=== PATIENT | male | born 1955 | race Caucasian/White ===

== ENCOUNTER 2017-01-09 21:51 | Observation (INO) | payer OTHER ==
[~2017-01-09] VITALS: Ht 180.3 cm; Wt 76.8 kg
[~2017-01-09 21:51] MED LIST: AMLO-147 PO; CARV3.1260 PO; CLON1PAT32 TD; FINA5TAB PO; FLEC50TA PO; HYDR-3672 PO; ONDA4TAB8 PO; OXYC-281 PO; ROSU20TA PO; TRAM-40 PO; VALS160T20 PO; WARF3TAB PO
[2017-01-09] MEDS ORDERED: ONDANSETRON 4 MG INJ IV STA (22:15)
[2017-01-09] MEDS ORDERED: morphine 4 MG/ML VIAL IV STA (22:15)
[2017-01-09 22:57] LABS: ADD SCAN DIFF NO
[2017-01-09 23:00] LABS: BASOPHIL # 0.1 10^3/ul (0.0-0.1); BASOPHILS % 0.8 % (0.0-2.0); EOSINOPHILS # 0.1 10^3/ul (0.0-0.5); EOSINOPHILS % 0.8 % (0.0-7.0); HEMATOCRIT 32.9 % (42.0-52.0); HEMOGLOBIN 10.9 g/dl (14.0-18.0); LYMPHOCYTES # 0.7 10^3/ul (0.8-2.9); MEAN CORPUSCULAR HEMOGLOBIN 32.2 pg (29.0-33.0); MEAN CORPUSCULAR HGB CONC 33.1 g/dl (32.0-37.0); MEAN CORPUSCULAR VOLUME 97.3 fl (82.0-101.0); MEAN PLATELET VOLUME 9.6 fl (7.4-10.4); MONOCYTE # 1.2 10^3/ul (0.3-0.9); MONOCYTES % 10.9 % (0.0-11.0); NEUTROPHIL # 8.5 10^3/ul (1.6-7.5); NEUTROPHILS % 80.1 % (39.0-77.0); PLATELET COUNT 169 10^3/UL (140-415); RED BLOOD COUNT 3.38 10^6/ul (4.70-6.10); RED CELL DISTRIBUTION WIDTH 13.2 % (11.5-14.5); WHITE BLOOD COUNT 10.6 10^3/ul (4.8-10.8)
[2017-01-09 23:20] LABS: ALBUMIN 4.5 g/dl (3.3-4.9); ALBUMIN/GLOBULIN RATIO 1.4; CALCIUM 9.4 mg/dl (8.4-10.2); CREATININE 13.46 mg/dl (0.61-1.24); POTASSIUM 4.9 mmol/L (3.5-5.1); TOTAL PROTEIN 7.7 g/dl (6.1-8.1)
--- NOTE | 2017-01-09 23:42 | RADRPT ---
PROCEDURE: CT Abdomen and pelvis without contrast. CLINICAL INDICATION: Abdominal pain. TECHNIQUE: CT scan of the abdomen and pelvis was performed on a multi-detector high-resolution CT scanner. Contiguous axial images were obtained from the lung bases to the ischial tuberosities wit hout intravenous contrast. Coronal and sagittal reformatted images were also obtained. Images were reviewed on the PACS workstation. One or more of the following dose reduction techniques were used: - Automated exposure control. - Adjustment of the mA and/or kV according to patient size. - Use of iterative reconstruction technique. Exam CTD/vol = 10.30 mGy. Total exam DLP = 586.37 mGy-cm. COMPARISON: 01/09/2015. FINDINGS: Evaluation of the lung bases demonstrates a 6 x 4 mm subpleural ground-glass density within the righ t lower lobe. Abdomen: The liver is normal in size. There is no focal mass or dilatation of the biliary tree. T he gallbladder is not distended. The spleen, pancreas and right adrenal gland are within normal garcia its. There is a nodule within the left adrenal gland measuring 1.9 x 1.4 cm with Hounsfield charact eristics compatible with adenoma. Bilateral kidneys are normal in size with no contour deforming ma ss identified. There is no radiopaque renal or ureteral calculus identified. There is mild right-s ided hydronephrosis. There is no retroperitoneal adenopathy. The abdominal aorta is of normal shayla radha with scattered atherosclerotic calcifications. There is no abnormal bowel wall thickening or distension. There is no bowel obstruction or free air . A normal appendix is identified. There is no diverticulosis or diverticulitis. There is no asci reny. Pelvis: The bladder is unremarkable. The prostate is mildly enlarged. There is no significant pel sabrina adenopathy or free fluid. Evaluation of the osseous structures demonstrates no suspicious lytic or blastic lesion. IMPRESSION: Mild right-sided hydronephrosis. There is no radiopaque renal or ureteral calculus identified. Left adrenal adenoma, stable. Vascular calcifications reflective of atherosclerosis. Mildly enlarged prostate. Right lower lobe 6 x 4 mm subpleural ground-glass density, stable compared with 01/09/2015. .Carl Jim, MD, Date Time Electronically viewed and signed by .Carl Jim MD, on 01/09/2017 23:41 .T/
[2017-01-10] VITALS (17 sets, daily range): BP systolic 119–171; BP diastolic 57–92; PULSE 73–95; RESP 18–20; Ht 180.3 cm; Wt 76.8 kg
[2017-01-10] MEDS ORDERED: HYDROmorphONE 1 MG/ML SYG IV STA (00:17)
[2017-01-10] MEDS ORDERED: FLEC50TA PO (00:34)
[2017-01-10] MEDS ORDERED: WARF3TAB PO (00:34)
[2017-01-10] MEDS ORDERED: FAMO20TA18 PO (00:34)
[2017-01-10] MEDS ORDERED: HYDR-3672 PO (00:34)
[2017-01-10] MEDS ORDERED: SITA25TA3 PO (00:34)
[2017-01-10] MEDS ORDERED: SEVE800T10 PO (00:34)
[2017-01-10 00:55] LABS: ADD UMIC YES; URINE BILIRUBIN (Dip) NEGATIVE (NEGATIVE); URINE BLOOD (Dip) TRACE (NEGATIVE); URINE COLOR LT. YELLOW (YELLOW); URINE KETONES (Dip) NEGATIVE (NEGATIVE); URINE LEUKOCYTE ESTERASE (Dip) NEGATIVE (NEGATIVE); URINE NITRITE (Dip) NEGATIVE (NEGATIVE); URINE TOTAL PROTEIN (Dip) 1+ (NEGATIVE); URINE UROBILINOGEN (Dip) 0.2 E.U./dL (0.1-1.0)
[2017-01-10 01:14] LABS: URINE RBCS 0-2 /HPF (0)
[2017-01-10 01:15] LABS: BACTERIA,URINE FEW; SQUAMOUS EPITHELIAL CELL,UR RARE
--- NOTE | 2017-01-10 02:15 | ERA ---
ER Documentation Chief Complaint Date/Time DATE: 01/10/17 TIME: 02:14 Chief Complaint RLQ ABD PAIN SINCE NOON, DENIES N/V +DIALYSIS HPI This is a history of a consequence of right lower quadrant pain right upper quadrant pain since noon. Denies nausea vomiting. He is a dialysis patient is dialyzed Tuesdays and Saturdays. No fevers no chills. Pain is mild to moderate intensity with no exacerbating or alleviating factors. No other current complaints ROS All systems reviewed and are negative except as per history of present illness. Medications Home Meds Reported Medications Sevelamer Hcl* (Renagel*) 800 Mg Tablet, 800 MG PO WITH MEALS, TAB 01/10/17 Sitagliptin* (Januvia*) 25 Mg Tablet, 25 MG PO DAILY, #30 TAB 01/10/17 Famotidine* (Famotidine*) 20 Mg Tablet, 20 MG PO DAILY, #30 TAB 01/10/17 Warfarin Sodium* (Coumadin*) 3 Mg Tablet, 3 MG PO QMWF, TAB PATIENT TAKING 3mg DAILY EVERY MON-MON-MON THEN EVERY 2mg DAILY ON Mon [facility] 01/10/17 Hydralazine Hcl* (Hydralazine Hcl*) 50 Mg Tab, 100 MG PO TID, #180 TAB 01/10/17 Flecainide Acetate* (Flecainide Acetate*) 50 Mg Tablet, 100 MG PO BID, TAB 01/10/17 Finasteride* (Proscar*) 5 Mg Tablet, 5 MG PO DAILY, TAB 01/03/15 Rosuvastatin Calcium* (Crestor*) 20 Mg Tablet, 20 MG PO HS, TAB 01/03/15 Discontinued Reported Medications Valsartan* (Diovan*) 160 Mg Tablet, 160 MG PO BID, TAB 08/10/15 Warfarin Sodium* (Coumadin*) 3 Mg Tablet, 3 MG PO DAILY, TAB 08/10/15 Clonidine Hcl Transdermal Patch* (Catapres-TTS 2*) 0.2 Mg/24 Hr/Patch.wk Patch.tdwk, 1 PATCH TD Q7D, PATCH 08/10/15 Amlodipine Besylate* (Amlodipine Besylate*) 10 Mg Tablet, 10 MG PO DAILY, TAB 08/10/15 Carvedilol* (Carvedilol*) 3.125 Mg Tablet, 3.125 MG PO BID, TAB 08/10/15 Tramadol Hcl* (Ultram*) 50 Mg Tablet, 50 MG PO Q8, TAB 01/04/15 Flecainide Acetate* (Flecainide Acetate*) 50 Mg Tablet, 50 MG PO BID, TAB 08/13/14 Discontinued Scripts Oxycodone Hcl-Acetaminophen* (Percocet*) 5-325 Mg Tablet, 1 TAB PO TID Y for PAIN, #12 TAB Prov:RADHA FONTAINE MD 08/10/15 Ondansetron Hcl* (Zofran*) 4 Mg Tablet, 4 MG PO TID for NAUSEA AND/OR VOMITING, #30 TAB Prov:RADHA FONTAINE MD 08/10/15 Hydralazine Hcl* (Hydralazine Hcl*) 50 Mg Tab, 75 MG PO Q6H Y for ELEVATED BLOOD PRESSURE, #60 3 Refills take 1 and 1/2 tab (75 mg) q6h prn SBP>150 Prov:CHAI ARITA 01/17/15 Allergies Allergies: Coded Allergies: No Known Drug Allergies (Unverified Allergy, Unknown, 01/10/17) PMhx/Soc Medical and Surgical Hx: pt denies Surgical Hx History of Surgery: No Anesthesia Reaction: No Hx Neurological Disorder: No Hx Respiratory Disorders: No Hx Cardiac Disorders: Yes (HTN, Afib) Hx Psychiatric Problems: No Hx Miscellaneous Medical Probl: Yes (DM, CKD dialysis T,TH SAT) Hx Alcohol Use: No Hx Substance Use: No Hx Tobacco Use: No Smoking Status: Former smoker Physical Exam Vitals Vital Signs Date Time Temp Pulse Resp B/P Pulse Ox O2 Delivery O2 Flow Rate FiO2 01/09/17 22:26 74 20 159/60 99 Room Air 01/09/17 21:57 98.0 86 24 168/73 100 Physical Exam Const: [] Head: Atraumatic Eyes: Normal Conjunctiva ENT: Normal External Ears, Nose and Mouth. Neck: Full range of motion..~ No meningismus. Resp: Clear to auscultation bilaterally Cardio: Regular rate and rhythm, no murmurs Abd: Soft, non tender, non distended. Normal bowel sounds Skin: No petechiae or rashes Back: No midline or flank tenderness Ext: No cyanosis, or edema Neur: Awake and alert Psych: Normal Mood and Affect Result Diagram: 01/09/17224901/09/172249 Results 24 hrs Laboratory Tests Test 01/09/17 22:50 01/10/17 00:15 White Blood Count 10.610^3/ul Red Blood Count 3.3810^6/ul Hemoglobin 10.9g/dl Hematocrit 32.9% Mean Corpuscular Volume 97.3fl Mean Corpuscular Hemoglobin 32.2pg Mean Corpuscular Hemoglobin Concent 33.1g/dl Red Cell Distribution Width 13.2% Platelet Count 46350^3/UL Mean Platelet Volume 9.6fl Neutrophils % 80.1% Lymphocytes % 7.0% Monocytes % 10.9% Eosinophils % 0.8% Basophils % 0.8% Nucleated Red Blood Cells % 0.0/100WBC Neutrophils # 8.510^3/ul Lymphocytes # 0.710^3/ul Monocytes # 1.210^3/ul Eosinophils # 0.110^3/ul Basophils # 0.110^3/ul Nucleated Red Blood Cells # 0.010^3/ul Sodium Level 133mmol/L Potassium Level 4.9mmol/L Chloride Level 96mmol/L Carbon Dioxide Level 23mmol/L Anion Gap 19 Blood Urea Nitrogen 83mg/dl Creatinine 13.46mg/dl Glucose Level 135mg/dl Calcium Level 9.4mg/dl Total Bilirubin 0.0mg/dl Direct Bilirubin 0.00mg/dl Indirect Bilirubin 0.0mg/dl Aspartate Amino Transf (AST/SGOT) 27IU/L Alanine Aminotransferase (ALT/SGPT) 30IU/L Alkaline Phosphatase 75IU/L Total Protein 7.7g/dl Albumin 4.5g/dl Globulin 3.20g/dl Albumin/Globulin Ratio 1.40 Lipase 848U/L Urine Color LT. YELLOW Urine Clarity CLEAR Urine pH 6.0 Urine Specific [place] 1.015 Urine Ketones NEGATIVE Urine Nitrite NEGATIVE Urine Bilirubin NEGATIVE Urine Urobilinogen 0.2 E.U./dL Urine Leukocyte Esterase NEGATIVE Urine Microscopic RBC 0-2/HPF Urine Microscopic WBC 0-2/HPF Urine Squamous Epithelial Cells RARE Urine Bacteria FEW Urine Hemoglobin TRACE Urine Glucose 0.1%% Urine Total Protein 1+ Current Medications Medications (Trade) Dose Ordered Sig/Betty Route PRN Reason Start Time Stop Time Status Last Admin Dose Admin Morphine Sulfate (morphine) 4 mg ONCE STAT IV 01/09/17 22:15 01/09/17 22:16 DC 01/09/17 22:48 Ondansetron HCl (Zofran Inj) 4 mg ONCE STAT IV 01/09/17 22:15 01/09/17 22:16 DC 01/09/17 22:48 Hydromorphone HCl (Dilaudid) 1 mg ONCE STAT IV 01/10/17 00:17 01/10/17 00:18 DC 01/10/17 00:26 Procedures/MDM Medical decision-making: Patient comes in with her to be acute pancreatitis. Lipase is elevated over 3 times his normal baseline from previous lab work that we have drawn here. Patient will be admitted to the [facility] physician assistant distribution manager. Per [facility] physician, patient to be admitted to telemetry observation status given her cardiac history. Departure Diagnosis: Primary Impression: Acute pancreatitis Qualified Code: K85.90 - Acute pancreatitis, unspecified complication status, unspecified pancreatitis type Condition: Serious SHOAIB GODINEZ January 10, 2017 02:15
[2017-01-10] MEDS ORDERED: ACETAMINOPHEN 325 MG TAB PO PRN ×2 (03:30→10:00)
[2017-01-10] MEDS ORDERED: GLUCAGON 1 MG INJ IM PRN (10:00)
[2017-01-10] MEDS ORDERED: DOCUSATE SODIUM 100 MG CAP PO PRN (10:00)
[2017-01-10] MEDS ORDERED: MAGNESIUM HYDROXIDE 30ML CUP PO PRN (10:00)
[2017-01-10] MEDS ORDERED: ACETAMINOPHEN 650 MG SUPP PR PRN (10:00)
[2017-01-10] MEDS ORDERED: GLUCOSE GEL 15 GRAM TUBE BUCCAL PRN (10:00)
[2017-01-10] MEDS ORDERED: DEXTROSE 50% 50 ML SYRINGE IV PRN ×2 (10:00)
[2017-01-10] MEDS ORDERED: NACL 0.9% 3 ML SYG IV SCH (10:00)
[2017-01-10] MEDS: FINASTERIDE 5 MG TAB PO SCH (10:00)
[2017-01-10] MEDS ORDERED: ONDANSETRON 4 MG INJ IV PRN (10:00)
[2017-01-10] MEDS ORDERED: GLUCOSE GEL 15 GRAM TUBE PO PRN ×2 (10:00)
[2017-01-10] MEDS ORDERED: HYDROCODONE/APAP (5/325) TAB PO PRN (10:00)
[2017-01-10] MEDS ORDERED: BISACODYL 10 MG SUPP PR PRN (10:00)
--- NOTE | 2017-01-10 10:26 | CONS ---
Date/Time of Note Date/Time of Note DATE: 01/10/17 TIME: 10:17 Assessment/Plan Assessment/Plan Chief Complaint/Hosp Course - ESRD on Hemodialysis - Acute Pancreatitis - Anemia - Hypertension Plan: Will schedule for dialysis today ( regular HD days are TTS ) D/C MOM Pain control Follow up with labs THANK YOU VRamona MUCH Problems: Consultation Date/Type/Reason Admit Date/Time January 10, 2017 at 02:14 Date of Consultation: January 10, 2017 Type of Consultation: NEPHROLOGY Reason for Consultation - ESRD on Hemodialysis Constitutional: poor po Eyes: no complaints ENT: no complaints Respiratory: no complaints Cardiovascular: no complaints Gastrointestinal: nausea, pain, vomiting Genitourinary: no complaints Musculoskeletal: no complaints Skin: no complaints Neurologic: no complaints Endocrine: no complaints Lymphatic: no complaints Past Medical History - ESRD on Hemodialysis - HYPERTENSION - DM - ANEMIA Past Surgical History AVF Family History Significant Family History: no pertinent family hx Social History Alcohol Use: none Smoking Status: Former smoker Drug Use: none Exam/Review of Systems Vital Signs Vitals Vital Signs Date Time Temp Pulse Resp B/P Pulse Ox O2 Delivery O2 Flow Rate FiO2 01/10/17 08:10 78 01/10/17 07:05 98.2 18 147/67 97 01/10/17 02:42 Room Air Intake and Output 01/09/17 01/09/17 01/10/17 15:00 23:00 07:00 Intake Total 0 ml Balance 0 ml Exam Constitutional: alert, oriented Psych: no complaints Head: normocephalic ENMT: nl external ears & nose Neck: supple Respiratory: crackles/rales Cardiovascular: edema, regular rate and rhythm, systolic murmur Gastrointestinal: soft Results Result Diagram: 01/09/17224901/09/172249 Results 24 hrs Laboratory Tests Test 01/09/17 22:50 01/10/17 00:15 White Blood Count 10.6 # Red Blood Count 3.38 L Hemoglobin 10.9 L Hematocrit 32.9 L Mean Corpuscular Volume 97.3 Mean Corpuscular Hemoglobin 32.2 Mean Corpuscular Hemoglobin Concent 33.1 Red Cell Distribution Width 13.2 Platelet Count 169 Mean Platelet Volume 9.6 # Neutrophils % 80.1 H Lymphocytes % 7.0 L Monocytes % 10.9 Eosinophils % 0.8 Basophils % 0.8 Nucleated Red Blood Cells % 0.0 Neutrophils # 8.5 H Lymphocytes # 0.7 L Monocytes # 1.2 H Eosinophils # 0.1 Basophils # 0.1 Nucleated Red Blood Cells # 0.0 Sodium Level 133 L Potassium Level 4.9 Chloride Level 96 L Carbon Dioxide Level 23 Anion Gap 19 H Blood Urea Nitrogen 83 H Creatinine 13.46 H Glucose Level 135 Calcium Level 9.4 Total Bilirubin 0.0 L Direct Bilirubin 0.00 Indirect Bilirubin 0.0 Aspartate Amino Transf (AST/SGOT) 27 Alanine Aminotransferase (ALT/SGPT) 30 Alkaline Phosphatase 75 Total Protein 7.7 Albumin 4.5 Globulin 3.20 Albumin/Globulin Ratio 1.40 Lipase 848 H Urine Color LT. YELLOW Urine Clarity CLEAR Urine pH 6.0 Urine Specific [place] 1.015 Urine Ketones NEGATIVE Urine Nitrite NEGATIVE Urine Bilirubin NEGATIVE Urine Urobilinogen 0.2 E.U./dL Urine Leukocyte Esterase NEGATIVE Urine Microscopic RBC 0-2 Urine Microscopic WBC 0-2 Urine Squamous Epithelial Cells RARE Urine Bacteria FEW Urine Hemoglobin TRACE Urine Glucose 0.1% H Urine Total Protein 1+ H Medications Medications Current Medications Acetaminophen (Tylenol Tab) 650 mg Q6H PRN PO PAIN AND OR ELEVATED TEMP; Start 01/10/17 at 03:30 Famotidine (Pepcid) 20 mg QHS PO ; Start 01/10/17 at 21:00 Finasteride (Proscar) 5 mg DAILY PO ; Start 01/10/17 at 10:00 Flecainide Acetate (Tambocor) 100 mg BID PO ; Start 01/10/17 at 10:30 Hydralazine HCl (Apresoline) 100 mg TID PO ; Start 01/10/17 at 13:00 Warfarin Sodium (Coumadin) 3 mg MONWEDFRI@17 PO ; Start 01/11/17 at 17:00 Atorvastatin Calcium 80 mg 80 mg DAILY@21 PO ; Start 01/10/17 at 21:00 Sodium Chloride (NS) 1,000 ml @ 75 mls/hr [id number] IV ; Start 01/10/17 at 10:30 Ondansetron HCl (Zofran Inj) 4 mg Q6H PRN IV NAUSEA AND/OR VOMITING; Start at 10:00 Acetaminophen (Tylenol Tab) 650 mg Q6H PRN PO PAIN LEVEL 1-3 OR FEVER; Start at 10:00 Acetaminophen (Tylenol Supp) [address] PAIN LEVEL 1-3 OR FEVER; Start 01/10/17 at 10:00 Acetaminophen/ Hydrocodone Bitart ([place] (5/325)) 1 tab Q6H PRN PO PAIN LEVEL 4 -6; Start 01/10/17 at 10:00 Morphine Sulfate (morphine) 2 mg Q4H PRN IV PAIN LEVEL 7-10; Start 01/10/17 at 10:00 Docusate Sodium (Colace) 100 mg Q12H PRN PO CONSTIPATION; Start 01/10/17 at 10: 00 Magnesium Hydroxide (Milk Of Mag) 30 ml DAILY PRN PO CONSTIPATION; Start at 10:00 Bisacodyl (Dulcolax Supp) [address] CONSTIPATION; Start 01/10/17 at 10 :00 Insulin Aspart (Novolog Insulin Pen) NOVOLOG *MILD* ALGORI... Q4 SC ; Start at 13:00 Miscellaneous Information 1 ea NOTE XX ; Start 01/10/17 at 10:00 Glucose (Glutose) 15 gm Q15M PRN PO DECREASED GLUCOSE; Start 01/10/17 at 10:00 Glucose (Glutose) 22.5 gm Q15M PRN PO DECREASED GLUCOSE; Start 01/10/17 at 10: 00 Dextrose (D50w Syringe) 25 ml Q15M PRN IV DECREASED GLUCOSE; Start 01/10/17 at 10:00 Dextrose (D50w Syringe) 50 ml Q15M PRN IV DECREASED GLUCOSE; Start 01/10/17 at 10:00 Glucagon (Glucagen) 1 mg Q15M PRN IM DECREASED GLUCOSE; Start 01/10/17 at 10:00 Glucose (Glutose) 15 gm Q15M PRN BUCCAL DECREASED GLUCOSE; Start 01/10/17 at 10 :00 Warfarin Sodium (Coumadin) 2 mg DAILY@17 PO ; Start 01/10/17 at 17:00 SHERRIE BAILEY MD January 10, 2017 10:26
[2017-01-10] MEDS ORDERED: FLECAINIDE 50 MG TAB PO SCH (10:30)
[2017-01-10 10:47] LABS: INR 2.2; PROTIME 24.7 Sec (12.2-14.2); PT RATIO 1.9
[2017-01-10 10:48] LABS: PARTIAL THROMBOPLASTIN TIME 37.7 Sec (25.0-35.0)
[2017-01-10] MEDS: FAMOTIDINE 20 MG TAB PO SCH (10:50)
[2017-01-10 10:55] LABS: ALBUMIN 3.7 g/dl (3.3-4.9); ALBUMIN/GLOBULIN RATIO 1.37; CALCIUM 8.9 mg/dl (8.4-10.2); POTASSIUM 4.5 mmol/L (3.5-5.1); TOTAL PROTEIN 6.4 g/dl (6.1-8.1)
[2017-01-10] MEDS: FLECAINIDE 100 MG TAB PO SCH ×3 (10:58→22:01)
[2017-01-10 11:04] LABS: CREATININE 14.81 mg/dl (0.61-1.24)
[2017-01-10 11:11] LABS: AMYLASE 118 U/L (11-123)
[2017-01-10] MEDS ORDERED: INSULIN ASPART [NOVOLOG] 3 ML PEN SC SCH (11:50)
[2017-01-10] MEDS: SOD CHLORIDE 0.9% 1,000 ML IV SCH (12:13)
[2017-01-10] MEDS: INSULIN ASPART [NOVOLOG] 3 ML PEN SC SCH ×3 (13:00→21:00)
--- NOTE | 2017-01-10 14:20 | HP ---
DATE OF ADMISSION: 01/10/2017 PRIMARY REHAB TECH: Dr. Vang PRIMARY CARE PHYSICIAN: Dr. Flores. CHIEF COMPLAINT ON ADMISSION: Abdominal pain. HISTORY OF PRESENT ILLNESS: This is a 61-year-old male with diabetes mellitus, end-stage renal dise ase on hemodialysis, hypertension with hypertensive nephropathy, paroxysmal atrial fibrillation on C oumadin for anticoagulation, who has been doing very well until yesterday around noon when he had ac char onset of epigastric right upper quadrant pain. The patient reports that yesterday around noon all of a sudden he had a 9 out of 10 severe right upper quadrant epigastric pain radiating to his ba ck. No nausea or vomiting. The pain started after he ate an apple. He subsequently was able to barker ve some turkey sandwich later on with ongoing pain up to 9 out of 10, no nausea or vomiting. He has no previous history of pancreatitis or known gallstones disease as far as he knows. He came to [facility] emergency department because of the persistent pain. In the emergency department, he was found to have a lipase of 848. His BMP was abnormal, consistent with his end-stage renal disease and white blood cell count is within normal. The rest of labs are normal. He denies any diarrhea or constipa tion. He denies any burning sensation, just severe pain radiating to his back. By this morning, hi s pain is very minimal. He has not required any additional pain medication overnight. He will be d ialyzed this morning, repeat lipase is at 497 with amylase of 118. He is currently n.p.o. except fo r meds and sips of water with repeat labs due tomorrow. ALLERGIES: NO KNOWN ALLERGIES. PAST MEDICAL HISTORY: 1. End-stage renal disease on hemodialysis Monday, and Monday. 2. Paroxysmal atrial fibrillation, controlled. 3. Chronic anticoagulation with Coumadin, therapeutic currently. 4. Hypertension. 5. Diastolic heart failure. 6. Diabetes mellitus. PAST SURGICAL HISTORY: Status post right upper extremity shunt placement for dialysis in October 2014 . SOCIAL HISTORY: The patient lives with family. He does not smoke or drink alcohol. REVIEW OF SYSTEMS: As per HPI. The patient denies any genitourinary complaints, no chest pain, no neurological complaints, abdominal pain, improving. OUTPATIENT MEDICATIONS: 1. Coumadin 3 mg every Monday, Monday and Monday and 2 mg every other day of the week. 2. Flecainide 100 mg p.o. b.i.d. 3. Hydralazine 100 mg p.o. t.i.d. 4. Crestor 20 mg p.o. at bedtime. 5. Renagel 800 mg p.o. q.a.c. 6. Pepcid 20 mg p.o. daily. 7. Januvia 25 mg p.o. daily. 8. Proscar 5 mg p.o. daily. PHYSICAL EXAMINATION: VITAL SIGNS: Temperature is 98.5, heart rate of 77, blood pressure 128/65. The patient is satting 96% on room air. GENERAL: He is alert and oriented x4. He is in no acute distress currently. HEENT: Pupils are equally round and reactive to light. Extraocular muscles are intact. Anicteric sclerae. NECK: No JVD, no thyromegaly. LUNGS: Clear to auscultation bilaterally. ABDOMEN: The patient has very mild discomfort to tenderness to palpation right upper quadrant and e pigastric area, but he says it is significantly improved. It is just like a soreness. Bowel sounds are present. EXTREMITIES: No edema, clubbing or cyanosis. He has a right upper extremity shunt, patent. NEUROLOGIC: Neurologically grossly intact. LABORATORY DATA: White blood cell count is 10.6, hemoglobin 10.9, hematocrit 32.9, platelet count o f 169. Chemistry with a sodium of 134, potassium 4.5, chloride 98, bicarbonate 21, BUN 92, creatini ne 14.81, this is predialysis; glucose of 90, calcium 8.9. LFTs within normal. Lipase is down to 4 97 from 848 and amylase of 118. INR is 2.20 with a PT of 24.7, PTT of 37.7. Urinalysis is negative . RADIOLOGICAL DATA: CAT scan of the abdomen and pelvis last night showed mild right-sided hydronephr osis, left adrenal adenoma, stable, vascular calcification, mildly enlarged prostate, but the liver and biliary tree are within normal along with the pancreas. ASSESSMENT AND PLAN: A 61-year-old male with: 1. Acute pancreatitis at least chemically. A CAT scan is nonconclusive. There are no signs of fabián n pancreatic inflammation. The patient's symptoms are almost resolved by this morning. His lipase is trending down. I have him n.p.o. currently, except for ice chips and sips of water with medicati ons. Will ____clear liquid diet by the morning if remains stable. Gentle IV fluid hydration. He i s going to be dialyzed this morning. He is on a sliding scale for his diabetes mellitus and MRCP is pending. 2. End-stage renal disease on hemodialysis. He is back on his dialysis as scheduled. He has been dialyzed this morning. 3. Paroxysmal atrial fibrillation. He remains stable and back on Coumadin with a therapeutic INR. 4. Hypertension. Continue outpatient medications. 5. Diastolic heart failure. He is currently euvolemic and stable. Continue outpatient regimen. 6. Prophylaxis: Pepcid for gastrointestinal prophylaxis and sequential compression devices to lowe r extremity for deep vein thrombosis prophylaxis. DISPOSITION: Patient is admitted to observation for now for acute pancreatitis. Dictated By: CHAI UMANZOR/SADIE Conf#: [id number] DID#: [id number]
[2017-01-10] MEDS: SEVELAMER 800 MG TAB PO SCH ×2 (14:32→17:55)
--- NOTE | 2017-01-10 15:48 | RADRPT ---
PROCEDURE: MRCP CLINICAL INDICATION: Abdominal pain TECHNIQUE: MRCP was performed on the a high-resolution, high Marjorie field strength scanner. Patien t was examined without contrast. 3-D coronal rotating MIP images of the biliary tree are available for review. COMPARISON: CT of the abdomen pelvis from 01/09/2017 FINDINGS: The liver is normal in size and signal intensity. No focal liver lesions or intrahepatic biliary di latation is seen. The gallbladder is unremarkable. The common bile duct is normal in course and altagracia iber. No filling defect in the common bile duct is seen. A left adrenal nodule is seen measuring approximately 1.6 cm in size and is essentially stable. The spleen, right adrenal gland and kidneys normal in size and signal intensity. The pancreas is normal in size and signal intensity. No pancreatic or peripancreatic fluid collection is seen. The pancre atic duct is normal in caliber. The kidneys are normal in size and contour. Mild right hydronephro sis is seen. Perinephric soft tissue stranding is seen. The left collecting system is normal. A p robable cyst in the lower pole of the right kidney is seen measuring 8 mm in size. No abnormally en larged lymph nodes or fluid collections are seen. A hemangioma is seen at T12 measuring approximatel y 2 cm in size. IMPRESSION: 1. No MRI evidence of biliary obstruction or choledocholithiasis. 2. No MRI evidence of pancreatitis. 3. Mild right hydronephrosis again seen. 4. Stable left adrenal nodule. RPTAT: HPNM Physician Kalyani Date Time Electronically viewed and signed by Physician Kalyani on 01/10/2017 15:48 /
[2017-01-10] MEDS ORDERED: WARFARIN 2 MG TAB PO SCH (17:00)
[2017-01-10] MEDS ORDERED: FAMOTIDINE 20 MG INJ IV SCH (21:00)
[2017-01-10] MEDS ORDERED: FAMOTIDINE 20 MG TAB PO SCH (21:00)
[2017-01-10] MEDS: ATORVASTATIN 80 MG TAB PO SCH (22:01)
[2017-01-11] VITALS (11 sets, daily range): BP systolic 109–165; BP diastolic 52–72; PULSE 74–85; RESP 18–20
[2017-01-11] MEDS: INSULIN ASPART [NOVOLOG] 3 ML PEN SC SCH ×4 (01:00→12:32)
[2017-01-11] MEDS ORDERED: ACCU-CHEK XX SCH (02:00)
[2017-01-11] MEDS: SOD CHLORIDE 0.9% 1,000 ML IV SCH ×2 (02:20→13:24)
[2017-01-11 07:32] LABS: ADD SCAN DIFF NO
[2017-01-11 07:41] LABS: BASOPHIL # 0.1 10^3/ul (0.0-0.1); EOSINOPHILS # 0.2 10^3/ul (0.0-0.5); EOSINOPHILS % 3.1 % (0.0-7.0); HEMATOCRIT 31.7 % (42.0-52.0); HEMOGLOBIN 10.2 g/dl (14.0-18.0); LYMPHOCYTES # 0.7 10^3/ul (0.8-2.9); LYMPHOCYTES % 10.1 % (15.0-51.0); MEAN CORPUSCULAR HGB CONC 32.2 g/dl (32.0-37.0); MEAN CORPUSCULAR VOLUME 99.4 fl (82.0-101.0); MEAN PLATELET VOLUME 9.1 fl (7.4-10.4); MONOCYTE # 1.3 10^3/ul (0.3-0.9); NEUTROPHIL # 5.1 10^3/ul (1.6-7.5); NEUTROPHILS % 68.5 % (39.0-77.0); PLATELET COUNT 145 10^3/UL (140-415); RED BLOOD COUNT 3.19 10^6/ul (4.70-6.10); RED CELL DISTRIBUTION WIDTH 13.3 % (11.5-14.5); WHITE BLOOD COUNT 7.4 10^3/ul (4.8-10.8)
[2017-01-11 07:53] LABS: ALBUMIN 3.7 g/dl (3.3-4.9); ALBUMIN/GLOBULIN RATIO 1.23; CALCIUM 8.5 mg/dl (8.4-10.2); CREATININE 10.34 mg/dl (0.61-1.24); POTASSIUM 4.5 mmol/L (3.5-5.1); TOTAL PROTEIN 6.7 g/dl (6.1-8.1)
[2017-01-11 08:11] LABS: MAGNESIUM 2.5 mg/dl (1.7-2.5); PHOSPHORUS 6.4 mg/dl (2.5-4.9)
[2017-01-11] MEDS: FINASTERIDE 5 MG TAB PO SCH (08:46)
[2017-01-11] MEDS: SEVELAMER 800 MG TAB PO SCH ×3 (08:46→17:00)
[2017-01-11] MEDS: FAMOTIDINE 20 MG TAB PO SCH (08:46)
[2017-01-11 09:00] LABS: AMYLASE 103 U/L (11-123)
--- NOTE | 2017-01-11 15:08 | PN ---
Date/Time of Note Date/Time of Note DATE: 01/11/17 TIME: 14:43 Assessment/Plan VTE Prophylaxis VTE Prophylaxis Intervention: other (on coumadin ) Lines/Catheters IV Catheter Type (from Nrs): Peripheral IV Urinary Cath still in place: No Assessment/Plan Assessment/Plan 61-year-old male with: 1. Acute pancreatitis at least chemically. A CAT scan negative and MRCP negative Lipase trending down and Amylase wnl No abdo pain currently post clears and will advance diet. D/c IVF 2. Diabetes mellitus, on SSI and to resume Januvia at home. 3. End-stage renal disease on hemodialysis. He is back on his dialysis as scheduled. He has been dialyzed this morning. 4. Paroxysmal atrial fibrillation. He remains stable and back on Coumadin with a therapeutic INR. 4. Hypertension. Continue outpatient medications. 6. Diastolic heart failure. He is currently euvolemic and stable. Continue outpatient regimen. Prophylaxis: Pepcid for gastrointestinal prophylaxis and on Coumadin already. DISPOSITION: D/c plan home after HD tomorrow. Subjective 24 Hr Interval Summary Free Text/Dictation Patient doing better with no abdominal pain and tolerated clears for Lunch Advance diet over the next 24 hrs and plan for discharge home after HD tomorrow if tolerating soft Exam/Review of Systems Vital Signs Vitals Vital Signs Date Time Temp Pulse Resp B/P Pulse Ox O2 Delivery O2 Flow Rate FiO2 01/11/17 12:23 80 01/11/17 11:35 98.6 20 125/58 97 01/10/17 02:42 Room Air Intake and Output 01/10/17 01/10/17 01/11/17 15:00 23:00 07:00 Intake Total 300 ml 450 ml 100 ml Output Total 3100 ml 50 ml Balance -2800 ml 450 ml 50 ml Exam Constitutional: alert, oriented, well developed Respiratory: clear to auscultation, normal air movement Cardiovascular: nl pulses, regular rate and rhythm Gastrointestinal: non-tender, soft Musculoskeletal: nl extremities to inspection Extremities: normal pulses, other (no edema, clubbing or cyanosis ) Neurological: [employer] II-XII intact, nl mental status, nl speech, nl strength Results Result Diagram: 01/11/17 0715 01/11/17 0714 Results 24 hrs Laboratory Tests Test 01/10/17 17:54 01/10/17 22:04 01/11/17 02:18 01/11/17 07:14 Bedside Glucose 115 92 108 Sodium Level 139 Potassium Level 4.5 Chloride Level 104 Carbon Dioxide Level 26 Anion Gap 14 Blood Urea Nitrogen 44 #H Creatinine 10.34 #H Glucose Level 95 Calcium Level 8.5 Total Bilirubin 0.0 L Direct Bilirubin 0.00 Indirect Bilirubin 0.0 Aspartate Amino Transf (AST/SGOT) 25 Alanine Aminotransferase (ALT/SGPT) 29 Alkaline Phosphatase 72 Total Protein 6.7 Albumin 3.7 Globulin 3.00 Albumin/Globulin Ratio 1.23 Amylase Level 103 Lipase 405 H Test 01/11/17 07:15 01/11/17 08:05 01/11/17 11:40 01/11/17 12:30 White Blood Count 7.4 # Red Blood Count 3.19 L Hemoglobin 10.2 L Hematocrit 31.7 L Mean Corpuscular Volume 99.4 Mean Corpuscular Hemoglobin 32.0 Mean Corpuscular Hemoglobin Concent 32.2 Red Cell Distribution Width 13.3 Platelet Count 145 Mean Platelet Volume 9.1 Neutrophils % 68.5 Lymphocytes % 10.1 L Monocytes % 17.0 H Eosinophils % 3.1 Basophils % 1.0 Nucleated Red Blood Cells % 0.0 Neutrophils # 5.1 Lymphocytes # 0.7 L Monocytes # 1.3 H Eosinophils # 0.2 Basophils # 0.1 Nucleated Red Blood Cells # 0.0 Hemoglobin A1c 5.7 Phosphorus Level 6.4 H Magnesium Level 2.5 Bedside Glucose 92 161 103 Medications Medications Current Medications Acetaminophen (Tylenol Tab) 650 mg Q6H PRN PO PAIN AND OR ELEVATED TEMP; Start 01/10/17 at 03:30 Finasteride (Proscar) 5 mg DAILY PO Last administered on 01/11/17 08:46; Admin Dose 5 MG; Start 01/10/17 at 10:00 Hydralazine HCl (Apresoline) 100 mg TID PO Last administered on 01/11/17 12:32 ; Admin Dose 100 MG; Start 01/10/17 at 13:00 Warfarin Sodium (Coumadin) 3 mg MONWEDFRI@17 PO ; Start 01/11/17 at 17:00 Atorvastatin Calcium 80 mg 80 mg DAILY@ PO Last administered on 01/10/17 22: 01; Admin Dose 80 MG; Start 01/10/17 at 21:00 Sodium Chloride (NS) 1,000 ml @ 75 mls/hr [id number] IV Last administered on 01/11t 13:24; Admin Dose 75 MLS/HR; Start 01/10/17 at 10:30 Ondansetron HCl (Zofran Inj) 4 mg Q6H PRN IV NAUSEA AND/OR VOMITING; Start at 10:00 Acetaminophen (Tylenol Tab) 650 mg Q6H PRN PO PAIN LEVEL 1-3 OR FEVER; Start at 10:00 Acetaminophen (Tylenol Supp) 650 mg Q6H PRN [place] PAIN LEVEL 1-3 OR FEVER; Start 01/10/17 at 10:00 Acetaminophen/ Hydrocodone Bitart ([place] (5/325)) 1 tab Q6H PRN PO PAIN LEVEL 4 -6; Start 01/10/17 at 10:00 Morphine Sulfate (morphine) 2 mg Q4H PRN IV PAIN LEVEL 7-10; Start 01/10/17 at 10:00 Docusate Sodium (Colace) 100 mg Q12H PRN PO CONSTIPATION; Start 01/10/17 at 10: 00 Bisacodyl (Dulcolax Supp) 10 mg DAILY PRN [place] CONSTIPATION; Start 01/10/17 at 10 :00 Insulin Aspart (Novolog Insulin Pen) NOVOLOG *MILD* ALGORI... Q4 SC ; Start at 13:00 Miscellaneous Information 1 ea NOTE XX ; Start 01/10/17 at 10:00 Glucose (Glutose) 15 gm Q15M PRN PO DECREASED GLUCOSE; Start 01/10/17 at 10:00 Glucose (Glutose) 22.5 gm Q15M PRN PO DECREASED GLUCOSE; Start 01/10/17 at 10: 00 Dextrose (D50w Syringe) 25 ml Q15M PRN IV DECREASED GLUCOSE; Start 01/10/17 at 10:00 Dextrose (D50w Syringe) 50 ml Q15M PRN IV DECREASED GLUCOSE; Start 01/10/17 at 10:00 Glucagon (Glucagen) 1 mg Q15M PRN IM DECREASED GLUCOSE; Start 01/10/17 at 10:00 Glucose (Glutose) 15 gm Q15M PRN BUCCAL DECREASED GLUCOSE; Start 01/10/17 at 10 :00 Warfarin Sodium (Coumadin) 2 mg SuTuThSa@17 PO Last administered on 01/10/17 17:55; Admin Dose 2 MG; Start 01/10/17 at 17:00 Famotidine (Pepcid) 20 mg AM PO Last administered on 01/11/17 08:46; Admin Dose 20 MG; Start 01/10/17 at 10:37 Flecainide Acetate (Tambocor) 100 mg BID PO Last administered on 01/10/17 22: 01; Admin Dose 100 MG; Start 01/10/17 at 11:00 CHAI ARITA January 11, 2017 14:57
[2017-01-11] MEDS: Insulin NOVOLOG SS MILD Algorithm (SS with meals and bedtime) SC SCH ×2 (16:59→21:00)
[2017-01-11] MEDS ORDERED: WARFARIN 3 MG TAB PO SCH (17:00)
[2017-01-11] MEDS ORDERED: INSULIN ASPART [NOVOLOG] 3 ML PEN SC SCH (17:25)
[2017-01-11] MEDS: morphine 2 MG INJ IV PRN ×2 (18:11→23:32)
[2017-01-11] MEDS: FLECAINIDE 100 MG TAB PO SCH (21:17)
[2017-01-11] MEDS: ATORVASTATIN 80 MG TAB PO SCH (21:18)
[2017-01-11] MEDS ORDERED: morphine 2 MG INJ IV ONE (21:30)
[2017-01-12] VITALS (17 sets, daily range): BP systolic 110–164; BP diastolic 61–79; PULSE 74–86; RESP 14–20
[2017-01-12] MEDS: Insulin NOVOLOG SS MILD Algorithm (SS with meals and bedtime) SC SCH ×2 (07:25→11:20)
[2017-01-12] MEDS: FINASTERIDE 5 MG TAB PO SCH (09:00)
[2017-01-12] MEDS: SEVELAMER 800 MG TAB PO SCH ×2 (10:38→11:50)
[2017-01-12] MEDS: FAMOTIDINE 20 MG TAB PO SCH (10:39)
[2017-01-12] MEDS: FLECAINIDE 100 MG TAB PO SCH (10:41)
[2017-01-12 12:24] LABS: INR 2.63; PROTIME 28.4 Sec (12.2-14.2); PT RATIO 2.2
[2017-01-12 12:25] LABS: ALBUMIN 4.1 g/dl (3.3-4.9); POTASSIUM 3.5 mmol/L (3.5-5.1)
[2017-01-12 12:28] LABS: ALBUMIN/GLOBULIN RATIO 1.13; BILIRUBIN,INDIRECT 0.3 mg/dl (0-1.1); BILIRUBIN,TOTAL 0.3 mg/dl (0.2-1.3); CALCIUM 9.1 mg/dl (8.4-10.2); CREATININE 7.14 mg/dl (0.61-1.24); TOTAL PROTEIN 7.7 g/dl (6.1-8.1)
--- NOTE | 2017-01-12 13:49 | CONS ---
Date/Time of Note Date/Time of Note DATE: 01/12/17 TIME: 13:48 Assessment/Plan Assessment/Plan Chief Complaint/Hosp Course - ESRD on Hemodialysis - Acute Pancreatitis - Anemia - Hypertension Plan: Bedside dialysis Pain control Follow up with labs Problems: Consultation Date/Type/Reason Admit Date/Time January 10, 2017 at 02:14 Initial Consult Date 01/10/17 Type of Consultation: NEPHROLOGY Reason for Consultation - ESRD on hemodialysis 24 HR Interval Summary Constitutional: improved, no complaints Exam/Review of Systems Vital Signs Vitals Vital Signs Date Time Temp Pulse Resp B/P Pulse Ox O2 Delivery O2 Flow Rate FiO2 01/12/17 12:09 86 01/12/17 11:31 97.9 14 137/61 98 01/10/17 02:42 Room Air Intake and Output 01/11/17 01/11/17 01/12/17 15:00 23:00 07:00 Intake Total 1000 ml 1050 ml Balance 1000 ml 1050 ml Exam Constitutional: alert, oriented Respiratory: crackles/rales Cardiovascular: systolic murmur Gastrointestinal: soft Results Result Diagram: 01/11/17 0715 01/12/17 1130 Results 24 hrs Laboratory Tests Test 01/11/17 16:58 01/11/17 20:41 01/11/17 23:59 01/12/17 04:17 Bedside Glucose 74 98 102 95 Test 01/12/17 07:39 01/12/17 11:30 01/12/17 12:10 Bedside Glucose 126 98 Prothrombin Time 28.4 H Prothrombin Time Ratio 2.2 INR International Normalized Ratio 2.63 Sodium Level 142 Potassium Level 3.5 Chloride Level 99 Carbon Dioxide Level 28 Anion Gap 19 H Blood Urea Nitrogen 24 #H Creatinine 7.14 #H Glucose Level 109 Calcium Level 9.1 Total Bilirubin 0.3 Direct Bilirubin 0.00 Indirect Bilirubin 0.3 Aspartate Amino Transf (AST/SGOT) 26 Alanine Aminotransferase (ALT/SGPT) 27 Alkaline Phosphatase 83 Total Protein 7.7 # Albumin 4.1 Globulin 3.60 H Albumin/Globulin Ratio 1.13 Amylase Level 71 Lipase 212 Medications Medications Current Medications Acetaminophen (Tylenol Tab) 650 mg Q6H PRN PO PAIN AND OR ELEVATED TEMP; Start 01/10/17 at 03:30 Finasteride (Proscar) 5 mg DAILY PO Last administered on 01/11/17t 08:46; Admin Dose 5 MG; Start 01/10/17 at 10:00 Hydralazine HCl (Apresoline) 100 mg TID PO Last administered on 01/12/17 12:13 ; Admin Dose 100 MG; Start 01/10/17 at 13:00 Warfarin Sodium (Coumadin) 3 mg MONWEDFRI@17 PO Last administered on 01/11/17 17:00; Admin Dose 3 MG; Start 01/11/17 at 17:00 Atorvastatin Calcium (Lipitor) 80 mg DAILY@21 PO Last administered on 21:18; Admin Dose 80 MG; Start 01/10/17 at 21:00 Ondansetron HCl (Zofran Inj) 4 mg Q6H PRN IV NAUSEA AND/OR VOMITING; Start at 10:00 Acetaminophen (Tylenol Tab) 650 mg Q6H PRN PO PAIN LEVEL 1-3 OR FEVER; Start at 10:00 Acetaminophen (Tylenol Supp) 650 mg Q6H PRN [place] PAIN LEVEL 1-3 OR FEVER; Start 01/10/17 at 10:00 Acetaminophen/ Hydrocodone Bitart ([place] (5/325)) 1 tab Q6H PRN PO PAIN LEVEL 4 -6 Last administered on 01/11/17 19:04; Admin Dose 1 TAB; Start 01/10/17 at 10: 00 Morphine Sulfate (morphine) 2 mg Q4H PRN IV PAIN LEVEL 7-10 Last administered on 01/11/17 23:32; Admin Dose 2 MG; Start 01/10/17 at 10:00 Docusate Sodium (Colace) 100 mg Q12H PRN PO CONSTIPATION; Start 01/10/17 at 10: 00 Bisacodyl (Dulcolax Supp) 10 mg DAILY PRN [place] CONSTIPATION; Start 01/10/17 at 10 :00 Miscellaneous Information 1 ea NOTE XX ; Start 01/10/17 at 10:00 Glucose (Glutose) 15 gm Q15M PRN PO DECREASED GLUCOSE; Start 01/10/17 at 10:00 Glucose (Glutose) 22.5 gm Q15M PRN PO DECREASED GLUCOSE; Start 01/10/17 at 10: 00 Dextrose (D50w Syringe) 25 ml Q15M PRN IV DECREASED GLUCOSE; Start 5/16/17 at 10:00 Dextrose (D50w Syringe) 50 ml Q15M PRN IV DECREASED GLUCOSE; Start 01/10/17 at 10:00 Glucagon (Glucagen) 1 mg Q15M PRN IM DECREASED GLUCOSE; Start 01/10/17 at 10:00 Glucose (Glutose) 15 gm Q15M PRN BUCCAL DECREASED GLUCOSE; Start 01/10/17 at 10 :00 Warfarin Sodium (Coumadin) 2 mg SuTuThSa@17 PO Last administered on 01/10/17 17:55; Admin Dose 2 MG; Start 01/10/17 at 17:00 Famotidine (Pepcid) 20 mg AM PO Last administered on 01/12/17 10:39; Admin Dose 20 MG; Start 01/10/17 at 10:37 Flecainide Acetate (Tambocor) 100 mg BID PO Last administered on 01/12/17 10: 41; Admin Dose 100 MG; Start 01/10/17 at 11:00 SHERRIE BAILEY MD January 12, 2017 13:49
--- NOTE | 2017-01-12 15:41 | PN ---
Date/Time of Note Date/Time of Note DATE: 01/12/17 TIME: 15:36 Assessment/Plan VTE Prophylaxis VTE Prophylaxis Intervention: other (on coumadin ) Lines/Catheters IV [facility]from [facility] [place] Urinary Cath still in place: No Assessment/Plan Assessment/Plan 61-year-old male with: 1. Acute pancreatitis at least chemically. Pancreatic enzymes back to normal. Episode of pain yesterday after clears per patient, not today A CAT scan negative and MRCP negative Lipase trending down and Amylase wnl No abdo pain currently post clears and to be discharged home on clears to soft diet and advancing slowly as tolerated. 2. Diabetes mellitus, on SSI and to resume Januvia at home. 3. End-stage renal disease on hemodialysis. He is back on his dialysis as scheduled. He has been dialyzed this morning. 4. Paroxysmal atrial fibrillation. He remains stable and back on Coumadin with a therapeutic INR. 4. Hypertension. Continue outpatient medications. 6. Diastolic heart failure. He is currently euvolemic and stable. Continue outpatient regimen. Prophylaxis: Pepcid for gastrointestinal prophylaxis and on Coumadin already. DISPOSITION: D/c home today and f/u with PCP within 1 week. Subjective 24 Hr Interval Summary Free Text/Dictation Patient doing well after clears today and pancreatic enzymes back to normal. D/ c home today Exam/Review of Systems Vital Signs Vitals Vital Signs Date Time Temp Pulse Resp B/P Pulse Ox O2 Delivery O2 Flow Rate FiO2 01/12/17 12:09 86 01/12/17 11:31 97.9 14 137/61 98 01/10/17 02:42 Room Air Intake and Output 01/11/17 01/11/17 01/12/17 15:00 23:00 07:00 Intake Total 1000 ml 1050 ml Balance 1000 ml 1050 ml Exam Constitutional: alert, oriented, well developed Respiratory: clear to auscultation, normal air movement Cardiovascular: nl pulses, regular rate and rhythm Gastrointestinal: non-tender, soft Musculoskeletal: nl extremities to inspection Extremities: normal pulses Neurological: [employer] II-XII intact, nl mental status, nl speech, nl strength Results Result Diagram: 01/11/17 0715 01/12/17 1130 Results 24 hrs Laboratory Tests Test 01/11/17 16:58 01/11/17 20:41 01/11/17 23:59 01/12/17 04:17 Bedside Glucose 74 98 102 95 Test 01/12/17 07:39 01/12/17 11:30 01/12/17 12:10 Bedside Glucose 126 98 Prothrombin Time 28.4 H Prothrombin Time Ratio 2.2 INR International Normalized Ratio 2.63 Sodium Level 142 Potassium Level 3.5 Chloride Level 99 Carbon Dioxide Level 28 Anion Gap 19 H Blood Urea Nitrogen 24 #H Creatinine 7.14 #H Glucose Level 109 Calcium Level 9.1 Total Bilirubin 0.3 Direct Bilirubin 0.00 Indirect Bilirubin 0.3 Aspartate Amino Transf (AST/SGOT) 26 Alanine Aminotransferase (ALT/SGPT) 27 Alkaline Phosphatase 83 Total Protein 7.7 # Albumin 4.1 Globulin 3.60 H Albumin/Globulin Ratio 1.13 Amylase Level 71 Lipase 212 Medications Medications Current Medications Acetaminophen (Tylenol Tab) 650 mg Q6H PRN PO PAIN AND OR ELEVATED TEMP; Start 01/10/17 at 03:30 Finasteride (Proscar) 5 mg DAILY PO Last administered on 01/11/17 08:46; Admin Dose 5 MG; Start 01/10/17 at 10:00 Hydralazine HCl (Apresoline) 100 mg TID PO Last administered on 01/12/17 12:13 ; Admin Dose 100 MG; Start 01/10/17 at 13:00 Warfarin Sodium (Coumadin) 3 mg MONWEDFRI@17 PO Last administered on 01/11/17 17:00; Admin Dose 3 MG; Start 01/11/17 at 17:00 Atorvastatin Calcium (Lipitor) 80 mg DAILY@21 PO Last administered on 21:18; Admin Dose 80 MG; Start 01/10/17 at 21:00 Ondansetron HCl (Zofran Inj) 4 mg Q6H PRN IV NAUSEA AND/OR VOMITING; Start at 10:00 Acetaminophen (Tylenol Tab) 650 mg Q6H PRN PO PAIN LEVEL 1-3 OR FEVER; Start at 10:00 Acetaminophen (Tylenol Supp) 650 mg Q6H PRN [place] PAIN LEVEL 1-3 OR FEVER; Start 01/10/17 at 10:00 Acetaminophen/ Hydrocodone Bitart ([place] (5/325)) 1 tab Q6H PRN PO PAIN LEVEL 4 -6 Last administered on 01/11/17 19:04; Admin Dose 1 TAB; Start 01/10/17 at 10: 00 Morphine Sulfate (morphine) 2 mg Q4H PRN IV PAIN LEVEL 7-10 Last administered on 01/11/17 23:32; Admin Dose 2 MG; Start 01/10/17 at 10:00 Docusate Sodium (Colace) 100 mg Q12H PRN PO CONSTIPATION; Start 01/10/17 at 10: 00 Bisacodyl (Dulcolax Supp) 10 mg DAILY PRN [place] CONSTIPATION; Start 01/10/17 at 10 :00 Miscellaneous Information 1 ea NOTE XX ; Start 01/10/17 at 10:00 Glucose (Glutose) 15 gm Q15M PRN PO DECREASED GLUCOSE; Start 01/10/17 at 10:00 Glucose (Glutose) 22.5 gm Q15M PRN PO DECREASED GLUCOSE; Start 01/10/17 at 10: 00 Dextrose (D50w Syringe) 25 ml Q15M PRN IV DECREASED GLUCOSE; Start 01/10/17 at 10:00 Dextrose (D50w Syringe) 50 ml Q15M PRN IV DECREASED GLUCOSE; Start 01/10/17 at 10:00 Glucagon (Glucagen) 1 mg Q15M PRN IM DECREASED GLUCOSE; Start 01/10/17 at 10:00 Glucose (Glutose) 15 gm Q15M PRN BUCCAL DECREASED GLUCOSE; Start 01/10/17 at 10 :00 Warfarin Sodium (Coumadin) 2 mg SuTuThSa@17 PO Last administered on 01/10/17 17:55; Admin Dose 2 MG; Start 01/10/17 at 17:00 Famotidine (Pepcid) 20 mg AM PO Last administered on 01/12/17 10:39; Admin Dose 20 MG; Start 01/10/17 at 10:37 Flecainide Acetate (Tambocor) 100 mg BID PO Last administered on 01/12/17 10: 41; Admin Dose 100 MG; Start 01/10/17 at 11:00 CHAI ARITA January 12, 2017 15:41
--- NOTE | 2017-01-12 15:44 | PDOCDIS ---
Discharge Instructions CONDITION Patient Condition: Stable HOME CARE INSTRUCTIONS: Special Diet: clear to soft diet slowly advance as tolerated FOLLOW UP/APPOINTMENTS Appointments Follow up with PCP within 1 week Follow up with outpatient HD CHAI ARITA January 12, 2017 15:44
[2017-01-12] MEDS ORDERED: OXYC-279 PO (15:47)
== END 2017-01-12 16:49 | disposition home or self-care (01) ==
LOC: E/R 21:51 → TEL 01-10 02:14
PROVIDERS: ADMIT Internal Medicine; ATTEND Internal Medicine
DX: K85.90 Acute pancreatitis without necrosis or infection, unspecified (principal); E11.22 Type 2 diabetes mellitus with diabetic chronic kidney disease; I13.2 Hypertensive heart and chronic kidney disease with heart failure and with stage 5 chronic kidney disease, or end stage renal disease; I50.30 Unspecified diastolic (congestive) heart failure; N18.6 End stage renal disease; Z99.2 Dependence on renal dialysis; D64.9 Anemia, unspecified; I48.2 Chronic atrial fibrillation; Z79.01 Long term (current) use of anticoagulants; Z87.891 Personal history of nicotine dependence
CPT/HCPCS: 36415; 74176; 74181; 80053; 81001; 82150; 82962; 83036; 83690; 83735; 84100; 85025; 85610; 85730; 90935; 96374; 96375; 96376; 99285; G0378; J1170; J1815; J2270; J2405; J7030; 81003

== ENCOUNTER 2017-06-05 12:56 | Emergency (ER) | payer OTHER ==
[~2017-06-05] VITALS: Ht 180.3 cm; Wt 69.0 kg
[~2017-06-05 12:56] MED LIST changes: -AMLO-147 PO; -CARV3.1260 PO; -CLON1PAT32 TD; +FAMO20TA18 PO; -ONDA4TAB8 PO; +OXYC-279 PO; -OXYC-281 PO; +SEVE800T10 PO; +SITA25TA3 PO; -TRAM-40 PO; -VALS160T20 PO
[2017-06-05 13:34] VITALS: Ht 180.3 cm; Wt 69.0 kg
[2017-06-05] MEDS ORDERED: CEFEPIME 2GM/50 ML (PMX) 50 ML IVPB STA (15:39)
[2017-06-05] MEDS ORDERED: FLEC50TA PO (15:52)
[2017-06-05] MEDS ORDERED: ACET1TAB40 PO (15:53)
[2017-06-05] MEDS ORDERED: LORA-441 PO (15:53)
[2017-06-05] MEDS ORDERED: CEPH500C PO (15:54)
[2017-06-05] MEDS ORDERED: VANCOMYCIN 1 GM (PMX) 250 ML IVPB ONE (16:00)
--- NOTE | 2017-06-05 16:08 | RADRPT ---
PROCEDURE: XR Chest. CLINICAL INDICATION: chest pain TECHNIQUE: Single frontal view of the chest was obtained COMPARISON: 08/10/2015 FINDINGS: The heart and mediastinum are within normal limits. The lungs are clear. There is no pleural effusion or pneumothorax. RPTAT: AA IMPRESSION: No acute disease. .Tony Hill MD, Date Time Electronically viewed and signed by .Tony Hill MD, on 06/05/2017 16:08 .S/
[2017-06-05 16:28] LABS: ABNORMAL IP MESSAGE 1; BASOPHILS % 0.2 % (0.0-2.0); EOSINOPHILS % 0.1 % (0.0-7.0); HEMATOCRIT 31.8 % (42.0-52.0); HEMOGLOBIN 9.9 g/dl (14.0-18.0); LYMPHOCYTES # 0.2 10^3/ul (0.8-2.9); LYMPHOCYTES % 1.2 % (15.0-51.0); MEAN CORPUSCULAR HEMOGLOBIN 30.7 pg (29.0-33.0); MEAN CORPUSCULAR HGB CONC 31.1 g/dl (32.0-37.0); MEAN CORPUSCULAR VOLUME 98.5 fl (82.0-101.0); MEAN PLATELET VOLUME 9.5 fl (7.4-10.4); MONOCYTE # 2.4 10^3/ul (0.3-0.9); MONOCYTES % 13.3 % (0.0-11.0); NEUTROPHIL # 14.8 10^3/ul (1.6-7.5); NEUTROPHILS % 80.6 % (39.0-77.0); PLATELET COUNT 105 10^3/UL (140-415); POSITIVE DIFF @See below; RED BLOOD COUNT 3.23 10^6/ul (4.70-6.10); RED CELL DISTRIBUTION WIDTH 14.6 % (11.5-14.5); WHITE BLOOD COUNT 18.4 10^3/ul (4.8-10.8)
[2017-06-05] MEDS ORDERED: SOD CHLORIDE 0.9% 100 ML ONE (16:34)
[2017-06-05] MEDS ORDERED: IOHEXOL 300MG/ML 150 ML BTL ONE (16:34)
--- NOTE | 2017-06-05 16:37 | ERA ---
ER Documentation Chief Complaint Date/Time DATE: 06/05/17 TIME: 16:29 Chief Complaint VOMITING X 2 WKS. RECENT FISTULA PLACEMENT. DIALYSIS MONDAY HPI This is a 61-year-old male with a very complicated recent medical history that includes left eye cataract surgery complicated by infection now eyeball removal on . The surgery was performed by Dr. Johnson. The patient today was undergoing fistulogram for right upper extremity swelling and edema and was diagnosed with significant right subclavian vein stenosis. The patient is being followed by Dr. Fatima would like to stand but is concerned about possible potential infection as the patient is describing a low-grade fever and vomiting. He denies any significant abdominal pain or significant headaches. The patient does take Coumadin because of a history of atrial fibrillation. ROS All systems reviewed and are negative except as per history of present illness. Medications Home Meds Reported Medications Cephalexin* (Cephalexin*) 500 Mg Capsule, 500 MG PO Q6 for 10 Days, #28 CAP 06/05/17 Acetaminophen with Codeine (Acetaminophen-Cod #3 Tablet) 1 Each Tablet, 1 TAB PO Q6H Y for PAIN, #7 TAB 06/05/17 Lorazepam* (Ativan*) 0.5 Mg Tablet, 0.5 MG PO BID Y for PAIN, #30 TAB 06/05/17 Flecainide Acetate* (Flecainide Acetate*) 50 Mg Tablet, 50 MG PO BID, TAB 06/05/17 Sevelamer Hcl* (Renagel*) 800 Mg Tablet, 800 MG PO WITH MEALS, TAB 01/10/17 Sitagliptin* (Januvia*) 25 Mg Tablet, 25 MG PO DAILY, #30 TAB 01/10/17 Famotidine* (Famotidine*) 20 Mg Tablet, 20 MG PO DAILY, #30 TAB 01/10/17 Warfarin Sodium* (Coumadin*) 3 Mg Tablet, 3 MG PO QMWF, TAB PATIENT TAKING 3mg DAILY EVERY MON-MON-MON THEN EVERY 2mg DAILY ON Mon - MON - Mon01/10/17 Hydralazine Hcl* (Hydralazine Hcl*) 50 Mg Tab, 100 MG PO TID, #180 TAB 01/10/17 Finasteride* (Proscar*) 5 Mg Tablet, 5 MG PO DAILY, TAB 01/03/15 Rosuvastatin Calcium* (Crestor*) 20 Mg Tablet, 20 MG PO HS, TAB 01/03/15 Discontinued Scripts Oxycodone HCl/Acetaminophen (Percocet 5-325 mg Tablet) 1 Each Tablet, 1 EACH PO Q6 Y for PAIN, #20 TAB Prov:CHAI ARITA 01/12/17 Allergies Allergies: Coded Allergies: No Known Drug Allergies (Unverified Allergy, Unknown, 01/10/17) PMhx/Soc Anesthesia Reaction: No Hx Neurological Disorder: No Hx Respiratory Disorders: No Hx Cardiac Disorders: Yes (HTN, Afib) Hx Psychiatric Problems: No Hx Miscellaneous Medical Probl: No Hx Alcohol Use: Yes (Formerly 27 years ago) Hx Substance Use: No Hx Tobacco Use: Yes (Formerly 27 years ago) FmHx Family History: diabetes Physical Exam Vitals Vital Signs Date Time Temp Pulse Resp B/P Pulse Ox O2 Delivery O2 Flow Rate FiO2 06/05/17 16:00 100.5 97 16 188/71 100 Room Air 06/05/17 13:34 100.5 95 24 202/87 97 Physical Exam General: Well developed, well nourished, no acute distress Head: Normocephalic, atraumatic. Eyes: The upper eyelid to the left orbit is slightly erythematous, no significant drainage ENT: Moist mucous membranes Neck: Supple, no lymphadenopathy Respiratory: Lungs clear bilaterally, no distress Cardiovascular: Slight tachycardia, no murmurs, rubs, or gallops Abdominal: Soft, non-tender, non-distended, no peritoneal signs : Deferred MSK: Significant unilateral swelling to the right upper extremity with associated edema. AV fistula with good bruit and thrill. Neurologic: Alert and oriented, moving all extremities, normal speech, no focal weakness, no cerebellar signs no meningismus Skin: No rash Psych: Normal mood Result Diagram: 06/05/17 1600 06/05/17 1600 Results 24 hrs Laboratory Tests Test 06/05/17 16:00 06/05/17 17:35 White Blood Count 18.410^3/ul Red Blood Count 3.2310^6/ul Hemoglobin 9.9g/dl Hematocrit 31.8% Mean Corpuscular Volume 98.5fl Mean Corpuscular Hemoglobin 30.7pg Mean Corpuscular Hemoglobin Concent 31.1g/dl Red Cell Distribution Width 14.6% Platelet Count 99995^3/UL Mean Platelet Volume 9.5fl Neutrophils % 80.6% Lymphocytes % 1.2% Monocytes % 13.3% Eosinophils % 0.1% Basophils % 0.2% Nucleated Red Blood Cells % 0.0/100WBC Neutrophils # 14.810^3/ul Lymphocytes # 0.210^3/ul Monocytes # 2.410^3/ul Eosinophils # 0.010^3/ul Basophils # 0.010^3/ul Nucleated Red Blood Cells # 0.010^3/ul Prothrombin Time 25.3Sec Prothrombin Time Ratio 2.0 INR International Normalized Ratio 2.27 Activated Partial Thromboplast Time 58.6Sec Sodium Level 137mmol/L Potassium Level 3.2mmol/L Chloride Level 96mmol/L Carbon Dioxide Level 26mmol/L Anion Gap 18 Blood Urea Nitrogen 35mg/dl Creatinine 9.02mg/dl Glucose Level 101mg/dl Lactic Acid Level 0.8mmol/L 0.9mmol/L Calcium Level 8.8mg/dl Total Bilirubin 0.3mg/dl Direct Bilirubin 0.10mg/dl Indirect Bilirubin 0.2mg/dl Aspartate Amino Transf (AST/SGOT) 21IU/L Alanine Aminotransferase (ALT/SGPT) 18IU/L Alkaline Phosphatase 99IU/L Troponin I 0.083ng/ml Total Protein 7.3g/dl Albumin 3.9g/dl Globulin 3.40g/dl Albumin/Globulin Ratio 1.14 Current Medications Medications (Trade) Dose Ordered Sig/Betty Route PRN Reason Start Time Stop Time Status Last Admin Dose Admin Cefepime HCl 50 ml @ 100 mls/hr ONCE STAT IVPB 06/05/17 15:39 06/05/17 16:08 DC 06/05/17 16:00 Vancomycin HCl (Vancocin) 250 ml @ 125 mls/hr ONCE ONCE IVPB 06/05/17 16:00 06/05/17 17:59 DC 06/05/17 16:00 IV Flush 10 ml 10 ml STK-MED ONCE .ROUTE 06/05/17 16:34 06/05/17 16:35 DC 06/05/17 17:02 Sodium Chloride (NS) 100 ml @ ud STK-MED ONCE .ROUTE 06/05/17 16:34 06/05/17 16:35 DC 06/05/17 17:03 Iohexol (Omnipaque 300mg/ ml) 150 ml STK-MED ONCE .ROUTE 06/05/17 16:34 06/05/17 16:35 DC 06/05/17 17:03 Acetaminophen (Tylenol Tab) 1,000 mg ONCE STAT PO 06/05/17 17:50 06/05/17 17:52 DC Labetalol HCl (Labetalol) 10 mg ONCE ONCE IV 06/05/17 18:30 06/05/17 18:52 DC Diltiazem HCl (Cardizem Iv) 20 mg ONCE ONCE IV 06/05/17 19:00 06/05/17 19:01 DC 06/05/17 19:03 Procedures/MDM EKG, MONITORS, & DIAGNOSTIC IMAGING: EKG: I reviewed and interpreted a 12-lead EKG. Rhythm: Normal sinus rhythm Ectopy: PVC Intervals: No abnormalities ST segments: No elevations or depressions T waves: No contiguous inversions Telemetry around 6:45 PM: I reviewed telemetry that shows a atrial fibrillation with rapid ventricular response. Chest x-ray: I reviewed and interpreted a 1 view of the chest Mediastinum: No enlargement Cardiac silhouette: No cardiomegaly Airspace: Clear lung wallace bilaterally without evidence of pneumothorax Bones: No evidence of fracture CT brain: No acute intracranial process per radiology read CT orbits with IV contrast: IMPRESSION: 1. Left globe prosthesis with mild foci of air surrounding the preseptal portion of the prosthesis with mild nonspecific stranding/soft tissue within this region. Findings may be related to cellulitis/phlegmon. There is no peripheral enhancing fluid collection to suggest drainable abscess within this region. 2. No retro-orbital hematoma. 3. Chronic right maxillary sinusitis/osteitis. Further findings as detailed above. RPTAT: PP LAB INTERPRETATION: Leukocytosis, normal lactic acid MEDICAL DECISION MAKING: The patient presents to the emergency room with low-grade fever, nausea and vomiting. The patient has a complicated history including recent diagnosis of subclavian venous stenosis of the right upper extremity as well as recent orbital surgery and globe resection. The skin around the globe resection is slightly erythematous, I was able to inspect this site in concordance with a conversation with his ocular surgeon Dr. Johnson. The patient has multiple potential sources of infection including this recent surgery, however the patient is also dialysis patient with dialysis on Monday , consider bacteremia. The patient need sepsis screening and septic workup including likely empiric antibiotics. It appears he is taking Keflex as an outpatient. I will avoid aggressive fluid resuscitation given the dialysis state and the fact that the patient requires dialysis today. My concern is that the patient has ocular infection he may require evaluation by his ocular surgeon. This may require transfer. I initiated a conversation with his surgeon Dr. Johnson. He recommends CT imaging with IV contrast on inspection of the skin. He would like to be notified once results are available. I also spoke to the patient's vascular surgeon Dr. fang. He states based on the stenosis there is no indication for emergent stenting of the patient does require stenting, placement when the patient is currently infected carries a significant risk. This can be deferred. ER COURSE: The patient has significant leukocytosis. Patient CT imaging shows concerning early cellulitis versus phlegmon. No evidence of abscess. I was able to speak to Dr. Johnson regarding these findings. He is not convinced that this is related to the infection. He states that there is nothing surgical for him to do. My concern at this point is that if this does develop or progressive the patient does need his surgeon nearby. For this reason I believe the transfer to [facility] would be most appropriate. I spoke to Dr. Weiner, the managing physician for renal group. He agrees with the plan of care and will attempt transfer given that they have a contract with the facility. The patient is stable for transfer. During his ER course the patient did flip into A. fib with RVR that was controlled with 20 mg of IV Cardizem. No indication for drip at this time. The patient will likely require telemetry. A. fib is consistent with his baseline and he is appropriately anticoagulated. I kept the patient and/or family informed of laboratory and diagnostic imaging results throughout the emergency room course. DISPOSITION PLAN: Transfer to [facility] CONSULTATION: Accepting care team and consultations: I discussed the current laboratory data, diagnostic imaging and emergency care provided. Admitting team: Dr. Weiner Admitting team indication: Insurance directed Departure Diagnosis: Primary Impression: SIRS (systemic inflammatory response syndrome) Additional Impressions: End stage renal disease on dialysis Preseptal cellulitis of left eye Atrial fibrillation with rapid ventricular response Condition: Stable JAZ MARTIN MD Jun 05, 2017 16:37
[2017-06-05 16:49] LABS: INR 2.27; PROTIME 25.3 Sec (12.2-14.2)
[2017-06-05 16:50] LABS: PARTIAL THROMBOPLASTIN TIME 58.6 Sec (25.0-35.0)
[2017-06-05 16:51] LABS: ALBUMIN 3.9 g/dl (3.3-4.9); ALBUMIN/GLOBULIN RATIO 1.14; BILIRUBIN,DIRECT 0.1 mg/dl (0.00-0.20); BILIRUBIN,INDIRECT 0.2 mg/dl (0-1.1); BILIRUBIN,TOTAL 0.3 mg/dl (0.2-1.3); CALCIUM 8.8 mg/dl (8.4-10.2); CREATININE 9.02 mg/dl (0.61-1.24); POTASSIUM 3.2 mmol/L (3.5-5.1); TOTAL PROTEIN 7.3 g/dl (6.1-8.1)
--- NOTE | 2017-06-05 16:56 | RADRPT ---
PROCEDURE: CT Brain without contrast. CLINICAL INDICATION: Vomiting, pain. Concern for hemorrhage. Recent left globe removal. TECHNIQUE: A CT of the brain was performed on multidetector high-resolution CT scanner utilizing a xial sections from the skull base through the vertex without contrast. The scan was reviewed in sof t tissue brain and high frequency resolution bone algorithm windows. Images were reviewed on a high -resolution PACS workstation. One or more the following does reduction techniques were utilized: Aut omated exposure control, adjustment of the mA/ or kV according to patient's size, or use of iterativ e reconstruction technique. The exam CTDI = 44.03 mGy and the DLP = 720.23 mGy-cm. COMPARISON: Brain CT 01/08/2015, brain MRI 01/11/2015. FINDINGS: The ventricles and sulci are mildly prominent indicative of volume loss. There is no intracranial h emorrhage, mass effect or midline shift. No abnormal intra-axial or extra-axial fluid collections a re seen. The ang/white matter differentiation is preserved. There are mild scattered foci of hypoattenuation in the white matter, which are nonspecific in etiol ogy but likely reflect chronic small vessel ischemic changes. There are mild intracranial vascular calcifications consistent with atherosclerosis. The visualized paranasal sinuses are essentially ariel ar. Left orbital prosthesis is noted. IMPRESSION: 1. No acute intracranial hemorrhage, transcortical infarction or mass effect. 2. Mild intracranial atherosclerosis and chronic small vessel ischemic changes. 3. Mild generalized cerebral volume loss. 4. Left orbital prosthesis. RPTAT: JJ .Neal Romero MD, MD Date Time Electronically viewed and signed by .Neal Romero MD, MD on 06/05/2017 16:55 .N/
[2017-06-05 17:01] LABS: TROPONIN-I 0.083 ng/ml (0.00-0.12)
--- NOTE | 2017-06-05 17:12 | RADRPT ---
PROCEDURE: CT of the orbits with contrast CLINICAL INDICATION: Recent left global removal. Evaluate for abscess. TECHNIQUE: CT of the orbits was performed following the intravenous contrast administration of 90 cc of Omnipaque-300 contrast. Coronal and sagittal re-formations were provided. The administered radi ation dose was CTDI vol = 53.32 mGy, DLP = 733.2 mGy-cm. One or more of the following dose reductio n techniques were used: Automated exposure control, Adjustment of the mA and/or kV according to jaxon ent size, or Use of iterative reconstruction technique. COMPARISON: There are no similar studies submitted for comparison. FINDINGS: There is no acute fracture. Postoperative changes are noted within the left orbit with globe prosthe sis. There is foci of air surrounding the prosthesis within the preseptal region. There is mild surr ounding stranding without peripheral enhancing fluid collection to suggest abscess. The right globe is intact. There is no orbital hematoma.The bilateral optic nerves are normal in siz e.The bilateral extraocular muscles are within normal limits. No orbital mass is identified. There is moderate right maxillary sinus mucosal thickening. There is right maxillary sinus mucoperio steal thickening suggesting chronic sinusitis/osteitis. The visualized portions of the brain are unr emarkable. No destructive osseous lesion is identified. IMPRESSION: 1. Left globe prosthesis with mild foci of air surrounding the preseptal portion of the prosthesis with mild nonspecific stranding/soft tissue within this region. Findings may be related to celluliti s/phlegmon. There is no peripheral enhancing fluid collection to suggest drainable abscess within th is region. 2. No retro-orbital hematoma. 3. Chronic right maxillary sinusitis/osteitis. Further findings as detailed above. RPTAT: PP .Reece Marcano MD, Date Time Electronically viewed and signed by .Reece Marcano MD, on 06/05/2017 17:12 .F/
[2017-06-05] MEDS ORDERED: ACETAMINOPHEN 500 MG TAB PO STA (17:50)
[2017-06-05] MEDS ORDERED: LABETALOL HCL 20MG INJ IV ONE (18:30)
[2017-06-05] MEDS ORDERED: DILTIAZEM 25 MG INJ IV ONE (19:00)
[2017-06-05 20:52] VITALS: RESP 16; TEMP 98
[2017-06-05 21:29] VITALS: BP 140/70; PULSE 90
== END 2017-06-05 23:21 | disposition short-term general hospital (02) ==
LOC: E/R 12:56
DX: I12.0 Hypertensive chronic kidney disease with stage 5 chronic kidney disease or end stage renal disease (principal); R65.10 Systemic inflammatory response syndrome (SIRS) of non-infectious origin without acute organ dysfunction; N18.6 End stage renal disease; L03.213 Periorbital cellulitis; I48.91 Unspecified atrial fibrillation; R93.0 Abnormal findings on diagnostic imaging of skull and head, not elsewhere classified; R40.2142 Coma scale, eyes open, spontaneous, at arrival to emergency department; R40.2252 Coma scale, best verbal response, oriented, at arrival to emergency department; R40.2362 Coma scale, best motor response, obeys commands, at arrival to emergency department; Z99.2 Dependence on renal dialysis; Z87.891 Personal history of nicotine dependence; Z79.01 Long term (current) use of anticoagulants
CPT/HCPCS: 36415; 70450; 70480; 71010; 80053; 83605; 84484; 85025; 85610; 85730; 87040; 93005; 96365; 96375; 99285; J0692; J3370; Q9967